=== PATIENT | male | born 1970 | race Caucasian/White ===

== ENCOUNTER 2022-06-16 05:42 | Observation (INO) | payer OTHER ==
[2022-06-14 11:48] LABS: BASOPHILS # (AUTO) 0.1 (0.0-0.1); EOSINOPHILS # (AUTO) 0.1 (0.0-0.4); EOSINOPHILS % 2.3 % (0.0-6.0); HEMATOCRIT 47.7 % (38.2-49.6); HEMOGLOBIN 16.3 g/dL (14.0-18.0); LYMPHOCYTES # (AUTO) 1.8 (1.0-3.2); LYMPHOCYTES % 29.6 % (18.0-39.1); MEAN CORPUSCULAR HEMOGLOBIN 32.1 pg (28-32); MEAN CORPUSCULAR HGB CONC 34.2 g/dL (31-35); MEAN CORPUSCULAR VOLUME 94.1 fL (81-99); MONOCYTES # (AUTO) 0.6 (0.2-0.8); MONOCYTES % 9.7 % (4.4-11.3); NEUTROPHILS # (AUTO) 3.6 (2.1-6.9); NEUTROPHILS % 57.2 % (38.7-80.0); PLATELET COUNT 243 x10e3/uL (140-360); RED BLOOD COUNT 5.07 x10e6/uL (4.3-5.7); RED CELL DISTRIBUTION WIDTH 11.9 % (11.7-14.4)
[2022-06-14 12:01] LABS: INR 0.87; PROTHROMBIN TIME 12.6 seconds (11.9-14.5)
[2022-06-14 12:02] LABS: PARTIAL THROMBOPLASTIN TIME 29.4 seconds (23.8-35.5)
[2022-06-14 12:09] LABS: ANION GAP 14.9 mmol/L (8-16); CALCIUM 9.3 mg/dL (8.4-10.2); CREATININE, SERUM 1.01 mg/dL (0.72-1.25); POTASSIUM 4.9 mmol/L (3.5-5.1)
[~2022-06-16] VITALS: Ht 172.7 cm; Wt 71.7 kg
[~2022-06-16 05:42] MED LIST: CELEBREX100 MG PO; VALTREX1000 MG PO; WELLBUTRIN XL300 MG PO
[2022-06-16] MEDS ORDERED: Vancomycin IV 1 GM VIAL ONE (07:06)
[2022-06-16] MEDS ORDERED: LIDOCAINE 1% W/EPINEPHRINE 20 ML VIAL ONE (07:06)
[2022-06-16] MEDS ORDERED: THROMBIN FOR SOLN 5,000 UNIT VIAL ONE (07:06)
[2022-06-16] MEDS ORDERED: HYDROCODON-ACE1 EA12 PO (09:07)
[2022-06-16] MEDS ORDERED: CEPACOL SORE THROAT LOZENGES PO PRN (09:15)
[2022-06-16] MEDS ORDERED: ACETAMINOPHEN 325 MG TAB PO PRN (09:15)
[2022-06-16] MEDS ORDERED: ONDANSETRON HCL INJ 2MG/ML 2ML 2 MG/ML VIAL IV PRN (09:15)
[2022-06-16] MEDS ORDERED: ZOLPIDEM TARTRATE 5 MG TAB PO PRN (09:15)
[2022-06-16] MEDS ORDERED: PROMETHAZINE HCL (IM) 25 MG/ML VIAL IM PRN (09:15)
[2022-06-16] MEDS ORDERED: VALACYCLOVIR HCL 500 MG TAB PO PRN (09:15)
[2022-06-16] MEDS ORDERED: HYDROMORPHONE 2MG/ML 2 MG/ML ML IV PRN (09:15)
[2022-06-16] MEDS ORDERED: OXYCODONE/ACETAMINOPHEN 5-325 1 EACH TABLET PO PRN (09:15)
[2022-06-16] MEDS ORDERED: MAGNESIUM/ALUMINUM/SIMETHICONE 30 ML UDC PO PRN (09:15)
[2022-06-16] MEDS ORDERED: Morphine 10mg syringe 10 MG/ML INJ IM PRN (09:15)
[2022-06-16] MEDS ORDERED: FENTANYL CITRATE/PF 100MCG/2 ML INJ ONE ×2 (09:22→13:06)
[2022-06-16] MEDS ORDERED: Morphine 4mg INJECTION 4 MG/ML INJ ONE (09:42)
[2022-06-16] MEDS ORDERED: HYDROMORPHONE 1MG/1ML INJ ONE (09:50)
[2022-06-16 10:10] VITALS: BP 106/78
[2022-06-16] MEDS: CARISOPRODOL 350 MG TAB PO PRN ×2 (11:15→16:29)
[2022-06-16] MEDS: LACTATED RINGER'S 1,000 ML IV SCH ×3 (11:45→20:44)
[2022-06-16 11:46] VITALS: BP 106/78
[2022-06-16 11:57] VITALS: BP 106/78
[2022-06-16] MEDS ORDERED: ROCURONIUM BROMIDE 10 MG/ML 5ML VIAL IV ONE (12:32)
[2022-06-16] MEDS ORDERED: DEXAMETHASONE SOD PHOS INJ 4 MG/ML SDV ONE (12:32)
[2022-06-16] MEDS ORDERED: POVIDONE IODINE 0.05% 0.05 % ML PO ONE (12:32)
[2022-06-16] MEDS ORDERED: ONDANSETRON HCL INJ 2MG/ML 2ML 2 MG/ML VIAL ONE (12:32)
[2022-06-16] MEDS ORDERED: PROPOFOL IV EMULSION 10 MG/ML 20 ML VIAL ONE (12:32)
[2022-06-16] MEDS ORDERED: SEVOFLURANE INHAL SOLN 250 ML PEN BTL ONE (12:32)
[2022-06-16] MEDS ORDERED: MIDAZOLAM HCL 2 MG/2 ML VIAL ONE (13:06)
[2022-06-16 15:57] VITALS: BP 114/75
[2022-06-16] MEDS: CELECOXIB 200 MG CAP PO SCH (16:29)
[2022-06-16 20:00] VITALS: BP 107/73
[2022-06-16] MEDS: OXYCODONE/ACETAMINOPHEN 5-325 1 EACH TABLET PO PRN (21:24)
[2022-06-16 22:28] VITALS: BP 107/73
[2022-06-17] VITALS: BP 109/66
[2022-06-17 04:00] VITALS: BP 101/66
[2022-06-17] MEDS: CELECOXIB 200 MG CAP PO SCH (08:00)
[2022-06-17 08:15] VITALS: BP 126/62
[2022-06-17] MEDS: OXYCODONE/ACETAMINOPHEN 5-325 1 EACH TABLET PO PRN (08:25)
[2022-06-17 08:34] VITALS: BP 126/62
[2022-06-17] MEDS ORDERED: BUPROPION HCL 150 MG TABCR PO SCH (09:00)
[2022-06-17] MEDS ORDERED: ONDANSETRON HCL 4 MG ORAL DISINTEGRATING TAB PO PRN (09:15)
== END 2022-06-17 10:03 | disposition home or self-care (01) ==
LOC: OR 05:42 → PACU V 09:06 → MED/SURG 10:26
PROVIDERS: ADMIT Neurological Surgery; ATTEND Neurological Surgery
DX: M50.122 Cervical disc disorder at C5-C6 level with radiculopathy (principal); M47.22 Other spondylosis with radiculopathy, cervical region; G56.01 Carpal tunnel syndrome, right upper limb; Z01.810 Encounter for preprocedural cardiovascular examination; Z01.812 Encounter for preprocedural laboratory examination; Z01.818 Encounter for other preprocedural examination; Z20.822 Contact with and (suspected) exposure to COVID-19
CPT/HCPCS: 0223U; 20931; 22551; 22845; 36415; 72040; 76000; 80048; 85025; 85610; 85730; 86850; 86900; 88304; 88311; 93005; C1713 ×3; G0378 ×2; J0690 ×2; J1100; J1170; J2250; J2270; J2405; J2550; J2704; J3010; J3370; J7121; 71046